=== PATIENT | male | born 1980 | race American Indian/Alaskan Native ===

== ENCOUNTER 2020-07-16 10:03 | Inpatient (IN) | payer OTHER ==
[~2020-07-16] VITALS: Ht 182.9 cm; Wt 100.0 kg
[2020-07-16] VITALS (12 sets, daily range): BP systolic 107–147; BP diastolic 83–101
[~2020-07-16 10:03] MED LIST: heparin 10,000 units/1 ML INJ ONE; heparin, porcine-25,000 units/D5-250ml premix IV ONE; nitroGLYCERIN in D5W 50mg/250ml (Tridil) infusion IV ONE; normal saline 1000ML IV soln ONE
[2020-07-16] MEDS ORDERED: aspirin 81mg tab.chew PO ONE ×2 (10:20→11:45)
[2020-07-16] MEDS ORDERED: nitroGLYCERIN-Tridil 50MG/D5W 250 ML IV PRN (10:20)
[2020-07-16] MEDS ORDERED: verapamil 2.5 mg/ml inj IV ONE (10:20)
[2020-07-16] MEDS ORDERED: LIDOcaine 1% (10mg/ml)w/preservative injection 20ml MDV ONE (10:21)
[2020-07-16] MEDS ORDERED: iohexol 350 MG/1 ML 200ml bottle ONE (10:21)
[2020-07-16] MEDS ORDERED: heparin 1,000unit/ml 10ml vial 10 ML ONE (10:21)
[2020-07-16] MEDS ORDERED: fentaNYL/PF 50MCG/1 ML 2ML syringe ONE (10:21)
[2020-07-16] MEDS ORDERED: midazolam 1 mg/ML 2ml injection ONE (10:21)
[2020-07-16 10:30] LABS: BASOPHILS # (AUTO) 0.1 X10'3 (0-0.2); BASOPHILS % (AUTO) 0.7 % (0-1); EOSINOPHILS # (AUTO) 0.4 X10'3 (0-0.9); EOSINOPHILS % (AUTO) 2.9 % (0-6); HEMATOCRIT 47.7 % (42.0-52.0); HEMOGLOBIN 16.3 g/dl (14.0-17.9); LYMPHOCYTES # (AUTO) 3.9 X10'3 (1.1-4.8); LYMPHOCYTES % (AUTO) 28.8 % (21-51); MEAN CORPUSCULAR HEMOGLOBIN 30.7 PG (27.0-31.0); MEAN CORPUSCULAR HGB CONC 34.2 g/dL (33.0-36.5); MEAN CORPUSCULAR VOLUME 89.9 FL (78-98); MEAN PLATELET VOLUME 8.4 FL (7.4-10.4); MONOCYTES % (AUTO) 7.1 % (2-12); NEUTROPHILS # (AUTO) 8.2 X10'3 (1.8-7.7); NEUTROPHILS % (AUTO) 60.5 % (42-75); PLATELET COUNT 312 X10'3 (140-440); RED CELL DISTRIBUTION WIDTH 13.7 % (11.5-14.5); WHITE BLOOD COUNT 13.5 X10'3 (4.5-11.0)
--- NOTE | 2020-07-16 10:33 | NUR ---
1011: stemi called by edmd steele; iv placed 1014: Nitro drip @ 20mcg & NS bolus started; inpatient nursing aide Ambika assessing pt 1016: cxr 1017: pt shaved 1020: edmd verified cxr; heaprin bolus (4000) administered; placed on transport monitor; geophysical laboratory director staff here. 1030: to geophysical laboratory director
[2020-07-16] MEDS ORDERED: nitroGLYCERIN-Tridil 50MG/D5W 250 ML IV ONE (10:38)
[2020-07-16 10:46] LABS: ALANINE AMINOTRANSFERASE 46 U/L (12-78); ALBUMIN 4.4 G/DL (3.4-5.0); ALBUMIN/GLOBULIN RATIO 1.2 (1.1-1.5); ALKALINE PHOSPHATASE 73 IU/L (46-116); ANION GAP 15 (8-16); ASPARTATE AMINO TRANSFERASE 30 U/L (10-37); BILIRUBIN,TOTAL 0.4 MG/DL (0.1-1.0); BLOOD UREA NITROGEN 10 MG/DL (7-18); BUN/CREATININE RATIO 8.1 (5.4-32.0); CALCIUM 9.3 MG/DL (8.5-10.1); CHLORIDE 104 MMOL/L (99-107); CREATININE 1.23 MG/DL (0.60-1.10); GLUCOSE 121 MG/DL (70-104); SODIUM 142 MMOL/L (135-145); TOTAL CARBON DIOXIDE 22.6 MMOL/L (24-32); eGFR 66 ML/MIN
[2020-07-16 10:54] LABS: MAGNESIUM 1.8 MG/DL (1.5-2.4)
[2020-07-16 10:58] LABS: POTASSIUM 3.7 MMOL/L (3.5-5.1)
[2020-07-16] MEDS ORDERED: ticagrelor 90mg tablet ONE (10:58)
[2020-07-16] MEDS ORDERED: magnesium 1 GM/2 ML inj ONE (11:01)
--- NOTE | 2020-07-16 11:34 | NUR ---
RECEIVED REPORT AND PATIENT FROM ASSOCIATE MERCHANDISE PLANNER. PATIENT DROWSY; HOWEVER, DENIES PAIN, SOB, AND OR NAUSEA.VS STABLE HEART RHYTHM A-FIB. VASCULAR BAND INTACT, RADIAL PULSE POSITIVE, CIR CHECK GOOD.RELEASED 3ML OF AIR. SITE CLEAN NO SIGNS OF BLEEDING. Addendum: 07/17/20 at 1243 by Troi De La Garza RN Amended: Links added.
[2020-07-16] MEDS ORDERED: nitroGLYCERIN 0.4mg SUBLingual tab SL PRN (11:40)
[2020-07-16] MEDS ORDERED: OXAZEpam 15mg capsule PO PRN (11:40)
[2020-07-16] MEDS ORDERED: ondansetron/PF 4mg/2ml inj IV PRN (11:40)
[2020-07-16] MEDS ORDERED: HYDROcodone/acetaminophen 10/325mg tab PO PRN (11:40)
[2020-07-16] MEDS ORDERED: HYDROcodone/acetaminophen 5mg/325mg tablet PO PRN (11:40)
[2020-07-16] MEDS ORDERED: proCHLORperazine 10 MG/2 ml inj IV PRN (11:40)
[2020-07-16] MEDS ORDERED: magnesium 2GM in 50ml NS 50 ML IV ONE (11:45)
[2020-07-16 12:34] LABS: CHOL/HDL RATIO 7.1 (0.00-4.99); CHOLESTEROL 254 MG/DL (0-200); HDL CHOLESTEROL 36 MG/DL (35-60); LDL CHOLESTEROL 203 MG/DL (50-100); TRIGLYCERIDES 134 MG/DL (20-135)
[2020-07-16] MEDS ORDERED: NO HOME MEDS (13:58)
[2020-07-16] MEDS ORDERED: magnesium Cl slow-release 64mg tablet PO PRN (18:05)
[2020-07-16] MEDS ORDERED: magnesium 4gm in 100ml NS 100 ML IV PRN (18:05)
[2020-07-16] MEDS ORDERED: potassium Cl 40MEQ/1/2NS 520ml 520 ML IV PRN (18:05)
[2020-07-16] MEDS ORDERED: potassium Cl 20 mEq SR tablet PO PRN ×2 (18:05)
[2020-07-16] MEDS: K and/or MAG REPLACEMENT MC SCH (20:00)
[2020-07-16] MEDS: metoprolol tartrate 12.5mg (1/2 tablet) PO SCH (21:53)
[2020-07-16] MEDS: ticagrelor 90mg tablet PO SCH (21:54)
[2020-07-17 02:00] VITALS: BP 107/80
[2020-07-17 06:30] VITALS: BP 126/82
--- NOTE | 2020-07-17 06:34 | NUR ---
Problems reprioritized. Patient report given, questions answered & plan of care reviewed with Pat.
[2020-07-17 07:12] LABS: BASOPHILS % (AUTO) 0.5 % (0-1); EOSINOPHILS # (AUTO) 0.2 X10'3 (0-0.9); EOSINOPHILS % (AUTO) 2.4 % (0-6); HEMATOCRIT 47.2 % (42.0-52.0); HEMOGLOBIN 16.3 g/dl (14.0-17.9); LYMPHOCYTES # (AUTO) 2.3 X10'3 (1.1-4.8); LYMPHOCYTES % (AUTO) 23.4 % (21-51); MEAN CORPUSCULAR HEMOGLOBIN 30.9 PG (27.0-31.0); MEAN CORPUSCULAR HGB CONC 34.5 g/dL (33.0-36.5); MEAN CORPUSCULAR VOLUME 89.6 FL (78-98); MEAN PLATELET VOLUME 8.5 FL (7.4-10.4); MONOCYTES # (AUTO) 0.8 X10'3 (0-0.9); MONOCYTES % (AUTO) 7.7 % (2-12); NEUTROPHILS # (AUTO) 6.6 X10'3 (1.8-7.7); PLATELET COUNT 252 X10'3 (140-440); RED BLOOD COUNT 5.26 X10'6 (4.70-6.10); RED CELL DISTRIBUTION WIDTH 13.8 % (11.5-14.5)
[2020-07-17 07:47] LABS: ALBUMIN 3.7 G/DL (3.4-5.0); ANION GAP 12 (8-16); BLOOD UREA NITROGEN 8 MG/DL (7-18); BUN/CREATININE RATIO 8.2 (5.4-32.0); CALCIUM 8.6 MG/DL (8.5-10.1); CHLORIDE 108 MMOL/L (99-107); CHOL/HDL RATIO 7.7 (0.00-4.99); CHOLESTEROL 230 MG/DL (0-200); CREATININE 0.98 MG/DL (0.60-1.10); GLUCOSE 107 MG/DL (70-104); HDL CHOLESTEROL 30 MG/DL (35-60); LDL CHOLESTEROL 186 MG/DL (50-100); POTASSIUM 4.2 MMOL/L (3.5-5.1); SODIUM 142 MMOL/L (135-145); TOTAL CARBON DIOXIDE 22.4 MMOL/L (24-32); TRIGLYCERIDES 134 MG/DL (20-135); eGFR 85 ML/MIN
[2020-07-17] MEDS: atorvastatin 20mg tablet PO SCH (08:14)
[2020-07-17] MEDS: aspirin 81mg tablet.DR PO SCH (08:15)
[2020-07-17] MEDS: metoprolol tartrate 12.5mg (1/2 tablet) PO SCH ×2 (08:15→21:16)
[2020-07-17] MEDS: ticagrelor 90mg tablet PO SCH ×2 (08:16→21:14)
--- NOTE | 2020-07-17 08:23 | NUR ---
PATIENT'S HEART RHYTHM CHANGED TO SINUS RHYTHM.DAYO YOU APPRISED. Addendum: 07/17/20 at 1726 by Tori De La Garza RN Amended: Links added.
--- NOTE | 2020-07-17 13:06 | NUR ---
UP AMBULATING , GAIT STEADY. PATIENT WALK TO C.. AND BACK TO ROOM WITH SBA. HEART RHYTHM ST AT 117. DENIES CHEST PAIN , SOB NAUSEA.RETURNED TO BED CALL LIGHT IN REACH.PAGE PLACED TO MARTIN YOU TO APPRISE HER OF PATIENT'S HEART RATE AND RHYTHM. Addendum: 07/17/20 at 1312 by Tori De La Garza RN Amended: Links added.
[2020-07-17 15:00] VITALS: BP 117/82
[2020-07-17] MEDS: amiodarone 200mg tablet PO SCH (17:12)
[2020-07-17] MEDS: lisinopril 5mg tablet PO SCH (17:14)
[2020-07-17 18:00] VITALS: BP 117/86
[2020-07-17] MEDS: K and/or MAG REPLACEMENT MC SCH (20:00)
[2020-07-17 22:00] VITALS: BP 109/78
[2020-07-18 02:00] VITALS: BP 106/72
[2020-07-18 06:00] VITALS: BP 99/69
--- NOTE | 2020-07-18 06:15 | NUR ---
Patient in room MED 311. I have received report from ASIA Stephen and had the opportunity to ask questions and assume patient care.
[2020-07-18 06:24] LABS: POTASSIUM 4.1 MMOL/L (3.5-5.1)
--- NOTE | 2020-07-18 06:37 | NUR ---
Problems reprioritized. Patient report given, questions answered & plan of care reviewed with
[2020-07-18] MEDS: atorvastatin 20mg tablet PO SCH (09:07)
[2020-07-18] MEDS: metoprolol tartrate 12.5mg (1/2 tablet) PO SCH (09:07)
[2020-07-18] MEDS: aspirin 81mg tablet.DR PO SCH (09:08)
[2020-07-18] MEDS: ticagrelor 90mg tablet PO SCH (09:08)
[2020-07-18] MEDS: lisinopril 5mg tablet PO SCH (09:08)
[2020-07-18] MEDS: amiodarone 200mg tablet PO SCH (09:09)
[2020-07-18] MEDS ORDERED: LOP12.5T PO (09:49)
[2020-07-18] MEDS ORDERED: ATOR20TA66 PO (09:49)
[2020-07-18] MEDS ORDERED: TICA90TA PO (09:49)
[2020-07-18] MEDS ORDERED: ASPI-1071 PO (09:49)
[2020-07-18] MEDS ORDERED: AMIO200T67 PO (09:49)
[2020-07-18] MEDS ORDERED: LISI-642 PO (09:49)
[2020-07-18 10:00] VITALS: BP 105/65
--- NOTE | 2020-07-18 12:13 | NUR ---
Pt is stable for D/C per MD orders. All D/C ppwk reviewed with patient. Pt had the opportunity to ask questions and get all answers. Stent card along with all ppwk given to patient. RX was faxed to [facility]. Coupon given for Brilinta as well. Pt will make his own follow up appt. PIV removed from R AC - pt tolerated well. Pt left with in personal vehicle. Pt walked out with nursing staff. Pt verbalized understanding off all ppwk.
== END 2020-07-18 11:56 | disposition home or self-care (01) | DRG 246 ==
LOC: ER 10:04 → MED 3N 12:38
PROVIDERS: ADMIT Internal Medicine Interventional Cardiology; ATTEND Internal Medicine Interventional Cardiology
PROC: 4A023N7 Measurement of Cardiac Sampling and Pressure, Left Heart, Percutaneous Approach (ICD-10-PCS; principal; 2020-07-16)
PROC: 027034Z Dilation of Coronary Artery, One Artery with Drug-eluting Intraluminal Device, Percutaneous Approach (ICD-10-PCS; 2020-07-16)
PROC: B2151ZZ Fluoroscopy of Left Heart using Low Osmolar Contrast (ICD-10-PCS; 2020-07-16)
DX: I21.02 ST elevation (STEMI) myocardial infarction involving left anterior descending coronary artery (principal); I50.21 Acute systolic (congestive) heart failure; E78.5 Hyperlipidemia, unspecified; I48.0 Paroxysmal atrial fibrillation; F17.210 Nicotine dependence, cigarettes, uncomplicated; Z79.899 Other long term (current) drug therapy; Z82.3 Family history of stroke; Z82.49 Family history of ischemic heart disease and other diseases of the circulatory system
CPT/HCPCS: 93306; 93458; 96365; 99285; C9606; 36415; 71045; 80048; 80053; 80061; 83735; 83880; 84132; 84439; 84443; 84484; 85025; 87081; 93005; 93308; 99152; 99153; A4620; C1725; C1751; C1769; C1874; C1894; G0378; J1644; J2001; J2250; J3010; J3475; J3490; J7030; Q9967